=== PATIENT | male | born 1975 | race Hispanic/Latino ===

== ENCOUNTER 2018-11-18 12:07 | Emergency (ER) | payer SELFPAY ==
[2018-11-18] MEDS ORDERED: Adacel (T-DAP) 0.5 ML SYRINGE ONE ×2 (12:36→13:22)
[2018-11-18] MEDS ORDERED: Lidocaine 1% (PF) 30 ML VIAL ONE (12:36)
[2018-11-18] MEDS ORDERED: Bacitracin 1 PK ONE (12:51)
== END 2018-11-18 13:34 | disposition home or self-care (01) ==
LOC: ERS 12:07
DX: S61.412A Laceration without foreign body of left hand, initial encounter (principal); F17.210 Nicotine dependence, cigarettes, uncomplicated; Z23 Encounter for immunization; W25.XXXA Contact with sharp glass, initial encounter
CPT/HCPCS: 12002; 90471; 90715; J2001

== ENCOUNTER 2019-01-12 14:59 | Emergency (ER) | payer OTHER, SELFPAY ==
--- NOTE | 2019-01-12 15:55 | CT ---
EXAM: CT brain without contrast HISTORY: Head injury on Monday with headache COMPARISON: None TECHNIQUE: Multiple contiguous axial images were obtained and a CT of the brain without contrast. FINDINGS: The brain is normal in morphology and attenuation without focal lesions or confluent areas of infarction. There is no evidence of hydrocephalus, intracranial hemorrhage, or extra-axial fluid collection. The calvarium and overlying soft tissues are unremarkable. The visualized paranasal sinuses and masto id air cells are well aerated. IMPRESSION: No evidence of acute intracranial abnormality
== END 2019-01-12 16:17 | disposition home or self-care (01) ==
LOC: ERS 14:59
DX: F07.81 Postconcussional syndrome (principal); F17.210 Nicotine dependence, cigarettes, uncomplicated
CPT/HCPCS: 70450